=== PATIENT | male | born 1980 | race Caucasian/White ===

== ENCOUNTER 2022-12-18 15:50 | Inpatient (IN) | payer BC ==
[2022-12-18 17:44] VITALS: BMI 27.0
[2022-12-18] MEDS ORDERED: DICYCLOMINE HCL 10 MG CAPSULE PO PRN (18:02)
[2022-12-18] MEDS ORDERED: IBUPROFEN 400 MG TABLET (FP) PO PRN (18:02)
[2022-12-18] MEDS ORDERED: BENZOCAINE/MENTHOL (CHLORASEPTIC ) LOZENGE MM PRN (18:02)
[2022-12-18] MEDS ORDERED: ACETAMINOPHEN 325 MG TABLET (FP) PO PRN ×2 (18:02)
[2022-12-18] MEDS ORDERED: BISMUTH SUBSALICYLATE 524 MG/30 ML PO PRN (18:02)
[2022-12-18] MEDS ORDERED: LOPERAMIDE HCL 2 MG CAPSULE PO PRN (18:02)
[2022-12-18] MEDS ORDERED: NALOXONE HCL (KLOXXADO) 8 MG SPRAY NS PRN (18:02)
[2022-12-18] MEDS ORDERED: MAGNESIUM HYDROX 2400MG/30ML ORAL SUSPENSION 30 ML CUP PO PRN (18:02)
[2022-12-18] MEDS ORDERED: POLYETHYLENE GLYCOL (HEALTHYLAX) 3350 17 GM PACKET PO PRN (18:02)
[2022-12-18] MEDS ORDERED: ONDANSETRON *ODT* 4 MG TABLET SL PRN (18:02)
[2022-12-18] MEDS ORDERED: MAG HYDROX/AL HYDROX/SIMETH 30 ML UNIT-DOSE CUP PO PRN (18:02)
[2022-12-18] MEDS: THIAMINE HCL 100 MG TABLET (FP) PO SCH (21:53)
[2022-12-18] MEDS: MELATONIN 5 MG TABLETS PO SCH (21:53)
[2022-12-18] MEDS: hydrOXYzine PAMOATE 25 MG CAPSULE (FP) PO PRN (21:53)
[2022-12-19] MEDS: PRENATAL VITAMINS W/ FOLIC ACID TABLET (FP) PO SCH (10:18)
[2022-12-19] MEDS: hydrOXYzine PAMOATE 25 MG CAPSULE (FP) PO PRN (10:18)
[2022-12-19] MEDS: METHOCARBAMOL 500 MG TABLET PO PRN (10:18)
[2022-12-19] MEDS ORDERED: methaDONE HCL 10 MG TABLET (FOR DETOX USE ONLY) PO ONE (10:21)
[2022-12-19] MEDS ORDERED: cloNIDine HCL 0.1 MG TABLET PO PRN (10:21)
[2022-12-19 11:06] LABS: HEMATOCRIT 40.7 % (35.4-49); HEMOGLOBIN 13.5 GM/dL (11.7-16.9); MCH 30.3 pg (25.7-33.7); MCHC 33.1 g/dl (32.0-35.9); MEAN CELL VOLUME 91.6 fl (80-96); MEAN PLT VOLUME 7.8 fl (7.5-11.1); PLATELET COUNT 272 10^3/uL (134-434); RBC 4.44 M/mm3 (4.00-5.60); RDW 13.8 % (11.9-15.9); WHITE BLOOD COUNT 9.3 K/mm3 (4.0-10.0)
[2022-12-19 11:18] LABS: ALBUMIN 3.7 g/dl (3.4-5.0); BLOOD UREA NITROGEN 7.8 mg/dL (7-18); CALCIUM 9.1 mg/dL (8.5-10.1)
[2022-12-19 11:21] LABS: CREATININE 0.6 mg/dL (0.55-1.3)
[2022-12-19 11:23] LABS: BILIRUBIN,TOTAL 0.6 mg/dL (0.2-1); TOT PROT 6.6 g/dl (6.4-8.2)
[2022-12-19] MEDS: MELATONIN 5 MG TABLETS PO SCH (22:08)
[2022-12-19] MEDS: THIAMINE HCL 100 MG TABLET (FP) PO SCH (22:08)
[2022-12-20] MEDS: hydrOXYzine PAMOATE 25 MG CAPSULE (FP) PO PRN (05:35)
[2022-12-20] MEDS: METHOCARBAMOL 500 MG TABLET PO PRN ×3 (05:35→22:36)
[2022-12-20] MEDS: PRENATAL VITAMINS W/ FOLIC ACID TABLET (FP) PO SCH (10:19)
[2022-12-20] MEDS: IBUPROFEN 600 MG TABLET (FP) PO PRN (12:21)
[2022-12-20] MEDS: MELATONIN 5 MG TABLETS PO SCH (22:34)
[2022-12-20] MEDS: THIAMINE HCL 100 MG TABLET (FP) PO SCH (22:34)
[2022-12-21] MEDS: METHOCARBAMOL 500 MG TABLET PO PRN ×2 (09:03→21:20)
[2022-12-21] MEDS: hydrOXYzine PAMOATE 25 MG CAPSULE (FP) PO PRN ×2 (09:03→21:20)
[2022-12-21] MEDS ORDERED: methaDONE HCL 10 MG TABLET (FOR DETOX USE ONLY) PO ONE (10:00)
[2022-12-21] MEDS: PRENATAL VITAMINS W/ FOLIC ACID TABLET (FP) PO SCH (10:07)
[2022-12-21] MEDS: MELATONIN 5 MG TABLETS PO SCH (21:19)
[2022-12-21] MEDS: THIAMINE HCL 100 MG TABLET (FP) PO SCH (21:20)
[2022-12-22] MEDS: NICOTINE 10 MG CARTRIDGE (INHALER) IH PRN (09:31)
[2022-12-22] MEDS: PRENATAL VITAMINS W/ FOLIC ACID TABLET (FP) PO SCH (10:20)
[2022-12-22] MEDS: hydrOXYzine PAMOATE 25 MG CAPSULE (FP) PO PRN (10:27)
[2022-12-22] MEDS: METHOCARBAMOL 500 MG TABLET PO PRN (10:27)
[2022-12-22] MEDS: diazePAM 5 MG TABLET PO PRN ×2 (13:09→16:59)
[2022-12-22] MEDS: THIAMINE HCL 100 MG TABLET (FP) PO SCH (22:33)
[2022-12-22] MEDS: MELATONIN 5 MG TABLETS PO SCH (22:33)
[2022-12-23] MEDS: diazePAM 5 MG TABLET PO PRN ×4 (03:15→22:10)
[2022-12-23] MEDS: NICOTINE 10 MG CARTRIDGE (INHALER) IH PRN ×3 (05:48→16:46)
[2022-12-23] MEDS: NICOTINE POLACRILEX 2 MG GUM BUC PRN (08:21)
[2022-12-23] MEDS ORDERED: methaDONE HCL 10 MG TABLET (FOR DETOX USE ONLY) PO ONE (10:00)
[2022-12-23] MEDS: PRENATAL VITAMINS W/ FOLIC ACID TABLET (FP) PO SCH (10:02)
[2022-12-23] MEDS: METHOCARBAMOL 500 MG TABLET PO PRN ×2 (10:05→17:56)
[2022-12-23] MEDS ORDERED: diazePAM 5 MG TABLET PO ONE (12:38)
[2022-12-23] MEDS: MELATONIN 5 MG TABLETS PO SCH (22:08)
[2022-12-23] MEDS: THIAMINE HCL 100 MG TABLET (FP) PO SCH (22:08)
[2022-12-23] MEDS: IBUPROFEN 600 MG TABLET (FP) PO PRN (22:09)
[2022-12-23] MEDS: hydrOXYzine PAMOATE 25 MG CAPSULE (FP) PO PRN (22:09)
[2022-12-24] MEDS: diazePAM 5 MG TABLET PO PRN (05:18)
[2022-12-24] MEDS: NICOTINE POLACRILEX 2 MG GUM BUC PRN (05:31)
[2022-12-24] MEDS: NICOTINE 10 MG CARTRIDGE (INHALER) IH PRN (06:44)
[2022-12-24] MEDS: hydrOXYzine PAMOATE 25 MG CAPSULE (FP) PO PRN (08:26)
[2022-12-24 09:23] VITALS: RESP 16
[2022-12-24] MEDS ORDERED: diazePAM 5 MG TABLET PO ONE (09:27)
[2022-12-24] MEDS: PRENATAL VITAMINS W/ FOLIC ACID TABLET (FP) PO SCH (10:01)
[2022-12-24] MEDS ORDERED: ONDANSETRON *ODT* 4 MG TABLET SL ONE (11:52)
[2022-12-24 13:01] VITALS: BP 150/92; PULSE 50; TEMP 97.7
== END 2022-12-24 13:00 | disposition other institution (70) | DRG 897 ==
LOC: YASAS 15:50 → Y3N 18:44
PROVIDERS: ADMIT Allergy & Immunology; ATTEND Family Medicine
PROC: HZ2ZZZZ Detoxification Services for Substance Abuse Treatment (ICD-10-PCS; principal; 2022-12-18)
DX: F11.23 Opioid dependence with withdrawal (principal); F15.10 Other stimulant abuse, uncomplicated; F17.210 Nicotine dependence, cigarettes, uncomplicated; F19.24 Other psychoactive substance dependence with psychoactive substance-induced mood disorder; F31.9 Bipolar disorder, unspecified; F41.9 Anxiety disorder, unspecified; M54.50 Low back pain, unspecified; G89.29 Other chronic pain
CPT/HCPCS: 36415; 80053; 85027; 86780; 93005; 93010; C9803-CS; Q0162; U0003; U0005

== ENCOUNTER 2023-04-05 12:40 | Inpatient (IN) | payer BC, OTHER ==
[2023-04-05 13:02] VITALS: BMI 28.7
[2023-04-05] MEDS ORDERED: AMMONIUM LACTATE 12% LOTION 225 GM BOTTLE TP PRN (15:14)
[2023-04-05] MEDS ORDERED: BENZOCAINE/MENTHOL (CHLORASEPTIC ) LOZENGE MM PRN (15:14)
[2023-04-05] MEDS ORDERED: COLLOIDAL OATMEAL 1 BAR EACH TP PRN (15:14)
[2023-04-05] MEDS ORDERED: DICYCLOMINE HCL 10 MG CAPSULE PO PRN (15:14)
[2023-04-05] MEDS ORDERED: hydrOXYzine PAMOATE 25 MG CAPSULE (FP) PO PRN (15:14)
[2023-04-05] MEDS ORDERED: ONDANSETRON *ODT* 4 MG TABLET SL PRN (15:14)
[2023-04-05] MEDS ORDERED: LOPERAMIDE HCL 2 MG CAPSULE PO PRN (15:14)
[2023-04-05] MEDS ORDERED: BISMUTH SUBSALICYLATE 262 MG/15 ML BTL PO PRN (15:14)
[2023-04-05] MEDS ORDERED: METHOCARBAMOL 500 MG TABLET PO PRN (15:14)
[2023-04-05] MEDS ORDERED: MAGNESIUM HYDROX 2400MG/30ML ORAL SUSPENSION 30 ML CUP PO PRN (15:14)
[2023-04-05] MEDS ORDERED: guaiFENesin 600 MG TABLET.ER (FP) PO PRN (15:14)
[2023-04-05] MEDS ORDERED: IBUPROFEN 600 MG TABLET (FP) PO PRN (15:14)
[2023-04-05] MEDS ORDERED: NICOTINE POLACRILEX 2 MG GUM BUC PRN (15:14)
[2023-04-05] MEDS ORDERED: cloNIDine HCL 0.1 MG TABLET PO PRN (15:14)
[2023-04-05] MEDS ORDERED: BENZONATATE 200 MG CAPSULE PO PRN (15:14)
[2023-04-05] MEDS ORDERED: MAG HYDROX/AL HYDROX/SIMETH 30 ML UNIT-DOSE CUP PO PRN (15:14)
[2023-04-05] MEDS ORDERED: NICOTINE 10 MG CARTRIDGE (INHALER) IH PRN (15:14)
[2023-04-05] MEDS ORDERED: POLYETHYLENE GLYCOL (HEALTHYLAX) 3350 17 GM PACKET PO PRN (15:14)
[2023-04-05] MEDS ORDERED: methaDONE HCL 10 MG TABLET (FOR DETOX USE ONLY) PO ONE ×2 (15:14→17:00)
[2023-04-05] MEDS ORDERED: NALOXONE HCL (KLOXXADO) 8 MG SPRAY NS PRN (15:14)
[2023-04-05] MEDS ORDERED: ACETAMINOPHEN 325 MG TABLET (FP) PO PRN (15:14)
[2023-04-05] MEDS ORDERED: NALOXONE HCL 0.4 MG/ML VIAL IM PRN (15:14)
[2023-04-05] MEDS ORDERED: IBUPROFEN 400 MG TABLET (FP) PO PRN (15:14)
[2023-04-05] MEDS: NICOTINE 21 MG/24 HOURS TOPICAL PATCH TD SCH (17:05)
[2023-04-05] MEDS ORDERED: MELATONIN 5 MG TABLETS PO SCH (22:00)
[2023-04-05] MEDS ORDERED: THIAMINE HCL 100 MG TABLET (FP) PO SCH (22:00)
[2023-04-06] MEDS ORDERED: PRENATAL VITAMINS W/ FOLIC ACID TABLET (FP) PO SCH (10:00)
[2023-04-06] MEDS: NICOTINE 21 MG/24 HOURS TOPICAL PATCH TD SCH (10:20)
[2023-04-06 13:00] VITALS: BP 122/61; PULSE 50; RESP 16; TEMP 97.6
[2023-04-06] MEDS ORDERED: QUEtiapine FUMARATE 100 MG TABLET (FP) PO SCH (22:00)
[2023-04-07] MEDS ORDERED: methaDONE HCL 10 MG TABLET (FOR DETOX USE ONLY) PO ONE (10:00)
[2023-04-09] MEDS ORDERED: methaDONE HCL 10 MG TABLET (FOR DETOX USE ONLY) PO ONE (10:00)
== END 2023-04-06 15:03 | disposition left against medical advice (07) | DRG 770 ==
LOC: YASAS 12:40 → Y3N 15:25
PROVIDERS: ADMIT Allergy & Immunology; ATTEND Surgery
PROC: HZ2ZZZZ Detoxification Services for Substance Abuse Treatment (ICD-10-PCS; principal; 2023-04-05)
DX: F11.23 Opioid dependence with withdrawal (principal); F17.210 Nicotine dependence, cigarettes, uncomplicated; F31.9 Bipolar disorder, unspecified; F19.24 Other psychoactive substance dependence with psychoactive substance-induced mood disorder; F41.8 Other specified anxiety disorders; G47.00 Insomnia, unspecified; Z86.59 Personal history of other mental and behavioral disorders
CPT/HCPCS: C9803-CS; U0003; U0005